=== PATIENT | female | born 1980 | race Caucasian/White ===

== ENCOUNTER → 2017-03-03 | Outpatient (CLI) | payer MEDICAID ==
--- NOTE | 2017-03-04 23:33 | RADIOLOGY REPORT PS360 ---
CT SINUS (MAX-FACIAL W/O CONT) HISTORY: OTALGIA BOTH EARS, DIZZINESS, TMJ SYNDROME, RHINITIS 36 Patient Age: 36 years: Female Ordering Physician: Rosette Woodruff MD TECHNIQUE: Helical CT scanning performed through the paranasal sinuses with axial and sagittal coronal reconstructions COMPARISON : FINDINGS The maxillary sinuses are well-developed and clear. The ostiomeatal unit is patent bilaterally. The sphenoid and ethmoid and frontal sinuses well-developed and clear. Unremarkable. Engorgement nasal turbinates bilaterally. The generous engorgement towards inferior turbinates observed. Mild deviation nasal septum convexity to left. There is additional septal spur to the left, encroaching upon the left nasal airway 5.5 mm leftward septal spur. Broad-based. Mastoid air cells are well-developed and clear. Middle ear and IACs unremarkable. Otherwise note the facial bones intact. Sella normal size. Cranial cervical junction normal Right & left TMJ intact with minor degenerative changes suggested towards the left TMJ more so than right. Degenerative changes. Most noted . Patient should have persistent dizzy symptoms consider follow-up MR with contrast to further evaluate IACs I see no suspicious findings here currently on this noncontrast CT study. Orbits unremarkable as well. IMPRESSION: 1. Paranasal sinuses well-developed and clear. No mucosal thickening. 2. Engorgement nasal turbinates bilaterally most generous towards inferior turbinates. 3. Mild deviation nasal septum to the left with broad-based septal spur to the left encroach upon the left nasal airway. 4. Additional comments in regards to above symptoms: ... Minor degenerative changes left TMJ.... Unimpressive ... IACs appear symmetric and satisfactory. Temporal bone, mastoids middle ear unremarkable.
== END ==
LOC: RAD 14:56
DX: H92.03 Otalgia, bilateral (principal); R42 Dizziness and giddiness; J30.1 Allergic rhinitis due to pollen; M26.609 Unspecified temporomandibular joint disorder, unspecified side

== ENCOUNTER → 2017-05-11 | Outpatient (CLI) | payer MEDICAID | LOC: LAB 10:45 | PROVIDERS: Nurse Practitioner | DX: T78.1XXA Other adverse food reactions, not elsewhere classified, initial encounter (principal) ==